=== PATIENT | female | born 1970 | race Caucasian/White ===

== ENCOUNTER 2017-06-11 20:32 | Emergency (ER) | payer MEDICARE, OTHER ==
[2017-06-11] MEDS ORDERED: Sodium Chloride 0.9% 1,000 ML IV STA (21:12)
[2017-06-11 21:40] LABS: BASO % 0.3 % (0.0-2.0); EOS % 0.1 % (0.0-4.0); HEMATOCRIT 38.3 % (34.0-47.0); LYMPH # 0.7 K/uL (1.0-4.3); LYMPH % 8.9 % (20.0-40.0); MEAN CELL VOLUME 86.9 fl (81.0-99.0); MEAN CORPUSCULAR HEMOGLOBIN 28.7 pg (27.0-31.0); MEAN PLATELET VOLUME 8.1 fl (7.2-11.7); MONO # 0.9 K/uL (0.0-0.8); MONO % 11.7 % (0.0-10.0); NEUT # 5.9 K/uL (1.8-7.0); NRBC % 0.1 % (0.0-0.0); PLATELET COUNT 257 K/uL (130-400); RED CELL DISTRIBUTION WIDTH 16.3 % (11.5-14.5); WHITE BLOOD COUNT 7.4 K/uL (4.8-10.8)
[2017-06-11 21:41] LABS: VENOUS BLOOD GAS BASE EXCESS -10.4 mmol/L (0.0-2.0); VENOUS BLOOD GAS PCO2 72 mmHg (40-60); VENOUS BLOOD PH 7.07 (7.32-7.43)
[2017-06-11 21:55] LABS: PARTIAL THROMBOPLASTIN TIME 33.4 Seconds (25.6-37.1)
[2017-06-11 21:57] LABS: URINE BACTERIA FEW (<OCC); URINE BILIRUBIN NEGATIVE (NEGATIVE); URINE BLOOD SMALL (NEGATIVE); URINE COLOR YELLOW (YELLOW); URINE GLUCOSE (UA) NEG (Normal); URINE KETONE 20 mg/dL (NEGATIVE); URINE LEUKOCYTE ESTERASE LARGE Leu/uL (Negative); URINE PROTEIN NEGATIVE (NEGATIVE); URINE UROBILINOGEN 0.2-1.0 mg/dL (0.2-1.0); WBC CLUMPS RARE /hpf; WBC URINE 77 /hpf (0-5)
[2017-06-11 22:01] LABS: RBC URINE 15 /hpf (0-3)
[2017-06-11] MEDS ORDERED: Ciprofloxacin 400mg/200ml D5W 400 MG/200 ML BAG IVPB STA (22:06)
[2017-06-11 22:25] LABS: ALB/GLOB RATIO 1.4 (1.0-2.1); ALKALINE PHOSPHATASE 89 U/L (38-126); ALT/SGPT 27 U/L (9-52); AST/SGOT 25 U/L (14-36); BILIRUBIN,TOTAL 0.9 mg/dl (0.2-1.3); BLOOD UREA NITROGEN 5 mg/dl (7-17); CALCIUM 9.1 mg/dL (8.4-10.2); CARBON DIOXIDE 22 mmol/L (22-30); CHLORIDE 99 mmol/L (98-107); GFR AFRICAN-AMERICAN > 60; GLUCOSE,RANDOM 115 mg/dL (65-105); SODIUM 133 mmol/l (132-148); TOTAL PROTEIN 7.7 G/DL (6.3-8.2)
[2017-06-11 22:48] LABS: NEUTROPHIL 78 % (42-75); TOTAL CELLS COUNTED 100
--- NOTE | 2017-06-11 23:21 | ED PDOC ---
HPI: Female Pain <Yakov Cedillo E - Last Filed: 06/13/17 11:42> Chief Complaint (Provider): UTI related symptoms History Per: Patient History/Exam Limitations: no limitations Onset/Duration Of Symptoms: Days (x4) Current Symptoms Are (Timing): Still Present Associated Symptoms: Fever. denies: Vomiting Additional Complaint(s): 46 year old female presents to ED with complaints of UTI symptoms x4 days and has a past medical history of multiple sclerosis. (+) foul smelling urine, incontinence (baseline secondary to multiple sclerosis), and generalized weakness. Patient notes that she "slid off the bed" secondary to weakness, prompting her to call EMS to be brought to the ED. EMS notes patient was febrile. (-) vomiting, diarrhea, abdominal pain, or dysuria. PCP: Non [facility] Abnormal Vaginal Bleeding: No <Chaparrita Stokes Y - Last Filed: 06/17/17 05:28> Time Seen by Provider: 06/11/17 20:35 Chief Complaint (Nursing): Weakness/Neurological Deficit Past Medical History Vital Signs: Last Vital Signs Temp 99.2 F 06/12/17 00:49 Pulse 84 06/12/17 00:49 Resp 06/12/17 00:49 BP 120/71 06/12/17 00:49 Pulse Ox 99 06/12/17 00:49 <Yakov Cedillo E - Last Filed: 06/13/17 11:42> Reviewed: Historical Data, Nursing Documentation, Vital Signs Vital Signs: Last Vital Signs Temp 99.8 F H 06/11/17 23:02 Pulse 88 06/11/17 23:02 Resp 06/11/17 23:02 BP 123/74 06/11/17 21:05 Pulse Ox 98 06/11/17 23:02 - Medical History PMH: Mitral Valve Prolapse, Multiple Sclerosis Denies: No Chronic Diseases - Surgical History Other surgeries: Thyroidectomy - Family History Family History: States: No Known Family Hx - Social History Current smoker - smoking cessation education provided: No Ex-Smoker (has not smoked in the last 12 months): No Alcohol: None Drugs: Denies <Chaparrita Stokes Y - Last Filed: 06/17/17 05:28> - Home Medications Home Medications: Ambulatory Orders Medication Instructions Recorded Baclofen [Lioresal] 2 tab PO QID 06/13/17 Levothyroxine [Synthroid] 100 mcg PO DAILY 06/13/17 - Allergies Allergies/Adverse Reactions: Allergies Allergy/AdvReac Type Severity Reaction Status Date / Time Penicillins Allergy RASH Verified 10/07/15 19:41 Review of Systems ROS Statement: Except As Marked, All Systems Reviewed And Found Negative Constitutional: Positive for: Fever, Weakness (generalized) Gastrointestinal: Negative for: Vomiting, Abdominal Pain, Diarrhea Genitourinary Female: Positive for: Incontinence (Baseline), Other ((+) foul smelling urine). Negative for: Dysuria <Chaparrita Stokes Y - Last Filed: 06/17/17 05:28> Physical Exam - Reviewed Nursing Documentation Reviewed: Yes Vital Signs Reviewed: Yes - Physical Exam Appears: Positive for: Non-toxic, No Acute Distress Head Exam: Positive for: ATRAUMATIC, NORMOCEPHALIC Skin: Positive for: Normal Color, Warm, Dry. Negative for: Pallor ENT: Negative for: Normal ENT Inspection (dry mucous membranes) Cardiovascular/Chest: Positive for: Regular Rate, Rhythm. Negative for: Murmur Respiratory: Positive for: Normal Breath Sounds. Negative for: Respiratory Distress Gastrointestinal/Abdominal: Positive for: Normal Exam, Soft. Negative for: Tenderness Back: Positive for: Normal Inspection Extremity: Positive for: Other (Contracted secondary to multiple sclerosis) Neurologic/Psych: Positive for: Alert, Oriented <Chaparrita Stokes Y - Last Filed: 06/17/17 05:28> - Laboratory Results Result Diagrams: 06/11/17 21:31 06/11/17 22:10 <Yakov Cedillo E - Last Filed: 06/13/17 11:42> - Laboratory Results Result Diagrams: 06/11/17 21:31 06/11/17 22:10 - ECG O2 Sat by Pulse Oximetry: 98 (RA) Pulse Ox Interpretation: Normal <Chaparrita Stokes Y - Last Filed: 06/17/17 05:28> Medical Decision Making Medical Decision Makin Initial impression: UTI r/o sepsis Initial plan: * VBG * EKG * Labs * Magnesium * Phosphorus * PTT/PT * CXR * NS IV * Acetaminophen 975mg PO * BCx * UA * Re-eval 2206 * Cipro 400mg/200mL DSW Patient is not code sepsis due to WBC count and lactic acid being within normal limits. 2351 Patient feels better, is more energetic and has moister mucous membranes. To be discharged. Will be picked up by brother. Awaiting VBG. Rx for Cipro given for UTI. Patient stable for discharge. Scribe Attestation: Documented by Marley Segovia and Sebastian Monzon acting as a scribe for Chaparrita Stokes MD. MD Scribe Attestation: All medical record entries made by the Scribe were at my direction and personally dictated by me. I have reviewed the chart and agree that the record accurately reflects my personal performance of the history, physical exam, medical decision making, and the department course for this patient. I have also personally directed, reviewed, and agree with the discharge instructions and disposition. <Chaparrita Stokes Y - Last Filed: 06/17/17 05:28> Disposition <Yakov Cedillo - Last Filed: 06/13/17 11:42> - Patient ED Disposition Is Patient to be Admitted: No Counseled Patient/Family Regarding: Studies Performed, Diagnosis, Need For Followup - Disposition Disposition: Routine/Home Disposition Time: 21:00 <Chaparrita Stokes - Last Filed: 06/17/17 05:28> - Clinical Impression Clinical Impression: UTI (urinary tract infection) - Disposition Condition: IMPROVED Additional Instructions: follow up with your primary doctor tomorrow return to the ED with any worsening or concerning symptoms Instructions: Urinary Tract Infection in Women (ED) Forms: [employer] (Kiswahili) Addendum Addendum: 06/13/17 11:43 Blood culture + gram negative victor hugo. Spoke with patient and informed of results. States she is feeling much better. Instructed to return to ED for further testing. Pt. states she will return to this ED today. <Yakov Cedillo E - Last Filed: 06/13/17 11:42>
[2017-06-12 00:17] LABS: VENOUS BLOOD GAS BASE EXCESS -6.8 mmol/L (0.0-2.0); VENOUS BLOOD GAS PCO2 52 mmHg (40-60); VENOUS BLOOD PH 7.22 (7.32-7.43)
[2017-06-12 00:30] LABS: ABG ALLEN TEST YES; ARTERIAL BLOOD GAS HCO3 25.2 mmol/L (21-28); ARTERIAL BLOOD GAS PH 7.47 (7.35-7.45); ARTERIAL BLOOD GAS PO2 97 mm/Hg (80-100)
[2017-06-12 00:51] VITALS: BP 120/71; PULSE 84; RESP 16; TEMP 99.2
--- NOTE | 2017-06-12 09:58 | RAD ---
HISTORY: Sepsis Patient COMPARISON: Comparison chest 10/09/2015. FINDINGS: LUNGS: No active pulmonary disease. PLEURA: No significant pleural effusion identified, no pneumothorax apparent. CARDIOVASCULAR: Normal. OSSEOUS STRUCTURES: Re- demonstrated are old healed left posterior rib fractures VISUALIZED UPPER ABDOMEN: Normal. OTHER FINDINGS: None. IMPRESSION: No acute cardiopulmonary disease. Old healed left posterior rib fractures.
--- NOTE | 2017-06-12 12:15 | CARD ---
APPROVED REPORT EKG Measurement Heart [id number] <Conclusion> Normal sinus rhythm Rightward axis Nonspecific T wave abnormality Abnormal ECG
[2017-06-17 05:28] VITALS: O2SAT 98
== END 2017-06-12 00:45 | disposition home or self-care (01) ==
LOC: H.ER 20:32
DX: N39.0 Urinary tract infection, site not specified (principal)
CPT/HCPCS: 36600; 71010; 80053; 81003; 81025; 82803; 85025; 85610; 85730; 87040; 87086; 87181; 87205; 93005; 96361; 96365; 99285; J0744; J7040

== ENCOUNTER 2017-06-13 18:58 | Inpatient (IN) | payer MEDICARE, OTHER ==
--- NOTE | 2017-06-13 20:20 | ED PDOC ---
HPI: General Adult Time Seen by Provider: 06/13/17 19:31 Chief Complaint (Nursing): Abnormal Labs Chief Complaint (Provider): Abnormal labs History Per: Patient History/Exam Limitations: no limitations Onset/Duration Of Symptoms: Days (x4) Additional Complaint(s): Margarita Sam is a 46 year old female, with a medical history of multiple sclerosis and UTIs, who presents to the emergency department due to positive blood culture after being diagnosed with UTI 2 days ago and given ciprol. Patient was seen in the ED after having fevers, and dysuria for 4 days. Patient is currently feeling better with less dysuria and denies any fever. Patient is taking ciprol every day and is in wheelchair due to MS. PMD: None provided. Past Medical History Reviewed: Historical Data, Nursing Documentation, Vital Signs Vital Signs: Last Vital Signs Temp 99.9 F H 06/13/17 19:16 Pulse 91 H 06/13/17 19:16 Resp 18 06/13/17 19:16 BP 101/71 06/13/17 19:16 Pulse Ox 99 06/13/17 20:28 - Medical History PMH: Mitral Valve Prolapse, Multiple Sclerosis - Family History Family History: States: Unknown Family Hx - Home Medications Home Medications: Ambulatory Orders Medication Instructions Recorded Baclofen [Lioresal] 2 tab PO QID 06/13/17 Levothyroxine [Synthroid] 100 mcg PO DAILY 06/13/17 - Allergies Allergies/Adverse Reactions: Allergies Allergy/AdvReac Type Severity Reaction Status Date / Time Penicillins Allergy RASH Verified 10/07/15 19:41 Review of Systems Constitutional: Negative for: Fever Genitourinary Female: Positive for: Dysuria (less ) Physical Exam - Reviewed Nursing Documentation Reviewed: Yes Vital Signs Reviewed: Yes - Physical Exam Appears: Positive for: Well, Non-toxic, No Acute Distress Head Exam: Positive for: ATRAUMATIC, NORMAL INSPECTION, NORMOCEPHALIC Skin: Positive for: Normal Color, Warm, Dry Eye Exam: Positive for: EOMI, Normal appearance, PERRL ENT: Positive for: Normal ENT Inspection Neck: Positive for: Normal, Painless ROM, Supple Cardiovascular/Chest: Positive for: Regular Rate, Rhythm. Negative for: Murmur Respiratory: Positive for: Normal Breath Sounds. Negative for: Respiratory Distress Gastrointestinal/Abdominal: Positive for: Normal Exam, Bowel Sounds, Soft. Negative for: Tenderness Back: Positive for: Normal Inspection Extremity: Negative for: Normal ROM (limited ROM due to Multiple sclerosis), Pedal Edema, Deformity Neurologic/Psych: Positive for: Alert, Oriented. Negative for: Motor/Sensory Deficits - Laboratory Results Result Diagrams: 06/13/17 20:20 06/13/17 20:26 - ECG O2 Sat by Pulse Oximetry: 99 (RA) Pulse Ox Interpretation: Normal Medical Decision Making Medical Decision Making: Initial Impression: UTI, pyelonephritis, septicimia(sepsis) Initial Plan: --VBG Shock Panel --Masic Metabolic Panel --CBC w/ differential --Rocephin 1gm IV --Blood culture --Urine C&S --reevaluation Scribe Attestation: Documented by Abdullahi Hemphill, acting as a scribe for Uyen Perez MD Provider Scribe Attestation: All medical record entries made by the Scribe were at my direction and personally dictated by me. I have reviewed the chart and agree that the record accurately reflects my personal performance of the history, physical exam, medical decision making, and the department course for this patient. I have also personally directed, reviewed, and agree with the discharge instructions and disposition. Disposition - Clinical Impression Clinical Impression: UTI (urinary tract infection), Septicemia - Patient ED Disposition Is Patient to be Admitted: Yes Discussed With : Samuel Malone Doctor Will See Patient In The: Hospital Counseled Patient/Family Regarding: Studies Performed, Diagnosis - Disposition Disposition Time: 21:40 Condition: FAIR Forms: [employer] (Macedonian) - Pt Status Changed To: Hospital Disposition Of: Observation - POA Present On Arrival: None
[2017-06-13] MEDS ORDERED: cefTRIAXone (Rocephin) 1 gm Inj ONE (20:27)
[2017-06-13 20:31] LABS: BASO % 0.5 % (0.0-2.0); HEMATOCRIT 38.7 % (34.0-47.0); LYMPH # 1.3 K/uL (1.0-4.3); LYMPH % 25.6 % (20.0-40.0); MEAN CELL VOLUME 87.2 fl (81.0-99.0); MEAN CORPUSCULAR HEMOGLOBIN 28.4 pg (27.0-31.0); MEAN CORPUSCULAR HGB CONC 32.6 g/dL (33.0-37.0); MEAN PLATELET VOLUME 7.5 fl (7.2-11.7); MONO # 0.8 K/uL (0.0-0.8); MONO % 15.7 % (0.0-10.0); NEUT # 2.8 K/uL (1.8-7.0); NEUT % 57.2 % (50.0-75.0); RED CELL DISTRIBUTION WIDTH 15.6 % (11.5-14.5); WHITE BLOOD COUNT 4.9 K/uL (4.8-10.8)
[2017-06-13 20:35] LABS: VENOUS BLOOD GAS BASE EXCESS 1.3 mmol/L (0.0-2.0); VENOUS BLOOD GAS PCO2 47 mmHg (40-60); VENOUS BLOOD PH 7.37 (7.32-7.43)
[2017-06-13 20:49] LABS: BLOOD UREA NITROGEN 5 mg/dl (7-17); CALCIUM 9.1 mg/dL (8.4-10.2); CARBON DIOXIDE 23 mmol/L (22-30); CHLORIDE 103 mmol/L (98-107); GFR AFRICAN-AMERICAN > 60; GLUCOSE,RANDOM 90 mg/dL (65-105); POTASSIUM 4.5 MMOL/L (3.6-5.0); SODIUM 136 mmol/l (132-148)
[2017-06-14 06:51] LABS: BASO % 0.7 % (0.0-2.0); EOS # 0.1 K/uL (0.0-0.7); EOS % 1.5 % (0.0-4.0); HEMATOCRIT 37.1 % (34.0-47.0); LYMPH # 1.3 K/uL (1.0-4.3); MEAN CELL VOLUME 87.2 fl (81.0-99.0); MEAN CORPUSCULAR HEMOGLOBIN 28.7 pg (27.0-31.0); MEAN CORPUSCULAR HGB CONC 32.9 g/dL (33.0-37.0); MEAN PLATELET VOLUME 7.8 fl (7.2-11.7); MONO # 0.8 K/uL (0.0-0.8); MONO % 18.3 % (0.0-10.0); NEUT % 48.5 % (50.0-75.0); NRBC % 0.4 % (0.0-0.0); RED CELL DISTRIBUTION WIDTH 15.7 % (11.5-14.5); WHITE BLOOD COUNT 4.1 K/uL (4.8-10.8)
[2017-06-14 07:08] LABS: ALB/GLOB RATIO 1.3 (1.0-2.1); ALKALINE PHOSPHATASE 75 U/L (38-126); ALT/SGPT 29 U/L (9-52); AST/SGOT 24 U/L (14-36); BILIRUBIN,TOTAL 0.4 mg/dl (0.2-1.3); BLOOD UREA NITROGEN 4 mg/dl (7-17); CALCIUM 9.3 mg/dL (8.4-10.2); CARBON DIOXIDE 25 mmol/L (22-30); CHLORIDE 106 mmol/L (98-107); GFR AFRICAN-AMERICAN > 60; GLUCOSE,RANDOM 89 mg/dL (65-105); POTASSIUM 4.1 MMOL/L (3.6-5.0); SODIUM 144 mmol/l (132-148); TOTAL PROTEIN 7.4 G/DL (6.3-8.2)
[2017-06-14] MEDS ORDERED: Levothyroxine 100 MCG TAB PO SCH (07:30)
--- NOTE | 2017-06-14 09:28 | CP.PCM.HP ---
History of Present Illness - History of Present Illness History of Present Illness: pt admitted for + urine and blood cultures. was initially seen in er for dysuria nad fever and dx w/ uti. kit figueroa. was called back bc of pos results. at [facility] denies complaints. no f/c, n/v/d. no abd pain, dysuria. this ma urine c/s resulted as e coli sensitve to cipro, bc gram neg rods pending final c/s. pending is consult pt offers no complaints. Present on Admission - Present on Admission Any Indicators Present on Admission: No Review of Systems - Genitourinary Genitourinary: As Per HPI, Dysuria Past Patient History - Past Medical History & Family History Past Medical History?: Yes - Past Social History Smoking Status: Never Smoked - CARDIAC Hx Cardiac Disorders: Yes (mitral valve prolapse) Hx Mitral Valve Prolapse: Yes - PULMONARY Hx Respiratory Disorders: No - NEUROLOGICAL Hx Neurological Disorder: Yes (MS) - HEENT Hx HEENT Problems: No - RENAL Hx Chronic Kidney Disease: No - ENDOCRINE/METABOLIC Hx Endocrine Disorders: No - HEMATOLOGICAL/ONCOLOGICAL Hx Blood Disorders: No - INTEGUMENTARY Hx Dermatological Problems: No - MUSCULOSKELETAL/RHEUMATOLOGICAL Hx Musculoskeletal Disorders: Yes Hx Falls: Yes - GASTROINTESTINAL Hx Gastrointestinal Disorders: No - GENITOURINARY/GYNECOLOGICAL Hx Genitourinary Disorders: No - PSYCHIATRIC Hx Psychophysiologic Disorder: No Hx Substance Use: No - SURGICAL HISTORY Hx Surgeries: Yes Hx Thyroidectomy: Yes - ANESTHESIA Hx Anesthesia: Yes Hx Anesthesia Reactions: No Meds Allergies/Adverse Reactions: Allergies Allergy/AdvReac Type Severity Reaction Status Date / Time Penicillins Allergy RASH Verified 10/07/15 19:41 Physical Exam - Constitutional Appears: Well, Non-toxic, No Acute Distress - Head Exam Head Exam: ATRAUMATIC, NORMAL INSPECTION, NORMOCEPHALIC - Eye Exam Eye Exam: EOMI, Normal appearance, PERRL Pupil Exam: NORMAL ACCOMODATION, PERRL - ENT Exam ENT Exam: Mucous Membranes Moist, Normal Exam - Neck Exam Neck exam: Positive for: Normal Inspection - Respiratory Exam Respiratory Exam: Clear to Auscultation Bilateral, NORMAL BREATHING PATTERN - Cardiovascular Exam Cardiovascular Exam: REGULAR RHYTHM, RRR, +S1, +S2 - GI/Abdominal Exam GI & Abdominal Exam: Normal Bowel Sounds, Soft. absent: Tenderness - Exam Speculum exam: NORMAL SPECULUM EXAM - Extremities Exam Extremities exam: Positive for: full ROM, normal capillary refill, normal inspection, pedal pulses present - Back Exam Back exam: FULL ROM, NORMAL INSPECTION - Neurological Exam Neurological exam: Alert, CN II-XII Intact, Normal Gait, Oriented x3, Reflexes Normal - Psychiatric Exam Psychiatric exam: Normal Affect, Normal Mood - Skin Skin Exam: Dry, Intact, Normal Color, Warm Results - Vital Signs Recent Vital Signs: Last Vital Signs Temp 97.9 F 06/14/17 07:53 Pulse 91 H 06/14/17 07:53 Resp 18 06/14/17 07:53 BP 93/67 L 06/14/17 07:53 Pulse Ox 100 06/14/17 07:53 - Labs Result Diagrams: 06/14/17 06:10 06/14/17 06:10 Labs: Laboratory Results - last 24 hr 06/13/17 06/13/17 06/13/17 20:20 20:26 20:30 WBC 4.9 RBC 4.43 Hgb 12.6 Hct 38.7 MCV 87.2 MCH 28.4 MCHC 32.6 L RDW 15.6 H Plt Count 256 MPV 7.5 Neut % (Auto) 57.2 Lymph % (Auto) 25.6 Dillon % (Auto) 15.7 H Eos % (Auto) 1.0 Baso % (Auto) 0.5 Neut # 2.8 Lymph # 1.3 Dillon # 0.8 Eos # 0.0 Baso # 0.0 pO2 15 L VBG pH 7.37 VBG pCO2 47 VBG HCO3 23.8 VBG Total CO2 28.6 H VBG O2 Sat (Calc) 22.6 L VBG Base Excess 1.3 VBG Potassium 4.4 Glucose 92 Lactate 1.0 FiO2 21.0 Sodium 136 135.0 Potassium 4.5 Chloride 103 102.0 Carbon Dioxide 23 Anion Gap 15 BUN 5 L Creatinine 0.5 L Est GFR ( Amer) > 60 Est GFR (Non-Af Amer) > 60 Random Glucose 90 Calcium 9.1 Total Bilirubin AST ALT Alkaline Phosphatase Total Protein Albumin Globulin Albumin/Globulin Ratio Venous Blood Potassium 4.4 06/14/17 06/14/17 06:10 06:10 WBC 4.1 L RBC 4.25 Hgb 12.2 Hct 37.1 MCV 87.2 MCH 28.7 MCHC 32.9 L RDW 15.7 H Plt Count 245 MPV 7.8 Neut % (Auto) 48.5 L Lymph % (Auto) 31.0 Dillon % (Auto) 18.3 H Eos % (Auto) 1.5 Baso % (Auto) 0.7 Neut # 2.0 Lymph # 1.3 Dillon # 0.8 Eos # 0.1 Baso # 0.0 pO2 VBG pH VBG pCO2 VBG HCO3 VBG Total CO2 VBG O2 Sat (Calc) VBG Base Excess VBG Potassium Glucose Lactate FiO2 Sodium 144 Potassium 4.1 Chloride 106 Carbon Dioxide 25 Anion Gap 17 BUN 4 L Creatinine 0.5 L Est GFR ( Amer) > 60 Est GFR (Non-Af Amer) > 60 Random Glucose 89 Calcium 9.3 Total Bilirubin 0.4 AST 24 ALT 29 Alkaline Phosphatase 75 Total Protein 7.4 Albumin 4.2 Globulin 3.2 Albumin/Globulin Ratio 1.3 Venous Blood Potassium Assessment & Plan (1) DVT prophylaxis Assessment and Plan: scd and aehose ambulation lovenox if admitted over 24h Status: Acute (2) Septicemia Assessment and Plan: pendign final blood culture ID consult ?? ability to dc on po cipro x 10 days. Status: Acute (3) UTI (urinary tract infection) Assessment and Plan: rocpehin while in pt. sensitive to cipro ?? able to resume cipro for longer course Status: Acute (4) Multiple sclerosis Assessment and Plan: cont tx plan as est by pmd Status: Acute Decision To Admit - Pt Status Changed To: Hospital Disposition Of: Observation - . Bed Request Type: Med/Surg Admitting Physician: Herson Butler
--- NOTE | 2017-06-14 10:52 | CP.PCM.CON ---
History of Present Illness - History of Present Illness History of Present Illness: Infectious Diseae Consult Note- asked to see this patient at the request of Samuel Malone for UTI and positve blood cx. HPI- Patient is a 46 year old female with PMH of Multiple Sclerosis wheelchair bound who originally came to ED 3 days ago with c/o dysurea and fever and wsa diagnosed with UTI and was d/c on oral cipro, howver, pt. was called back today because her Blood cx from 06/11/2017 was reported as GNR and urine cx from the same day as e.coli. Pt. currently denies any fever ro chills and sattes her dysurea and urinary spams sensation has resolved since taking the oral cipro. She states she is prone to frequent UTI's as outpatient and does have an ID doctor that she sees as Outpatient but states the last time she had UTI was a year ago and nothing recent. She states she gets Hives with PCN but does not think she ever had any issues with cephalosporins. Review of Systems - Review of Systems Review of Systems: ROS- had dysurea and urine spasm like sensation 4 days ago and has resolved with oral cipro, had fever but denies an it now, denies any abd or pelvic pain, denies any back pain, denies any LOMAX, denies any cough, denies any sob, denies any chest pain, denies any n/v, denies any diarrhea denies any sick contacts denies any recent travel Past Patient History - Past Medical History & Family History Past Medical History?: Yes - Past Social History Smoking Status: Never Smoked Alcohol: None Drugs: Denies Home Situation {Lives}: Alone - CARDIAC Hx Cardiac Disorders: Yes (mitral valve prolapse) Hx Mitral Valve Prolapse: Yes - PULMONARY Hx Respiratory Disorders: No - NEUROLOGICAL Hx Neurological Disorder: Yes (MS) - HEENT Hx HEENT Problems: No - RENAL Hx Chronic Kidney Disease: No - ENDOCRINE/METABOLIC Hx Endocrine Disorders: No - HEMATOLOGICAL/ONCOLOGICAL Hx Blood Disorders: No - INTEGUMENTARY Hx Dermatological Problems: No - MUSCULOSKELETAL/RHEUMATOLOGICAL Hx Musculoskeletal Disorders: Yes Hx Falls: Yes - GASTROINTESTINAL Hx Gastrointestinal Disorders: No - GENITOURINARY/GYNECOLOGICAL Hx Genitourinary Disorders: No - PSYCHIATRIC Hx Psychophysiologic Disorder: No Hx Substance Use: No - SURGICAL HISTORY Hx Surgeries: Yes Hx Thyroidectomy: Yes - ANESTHESIA Hx Anesthesia: Yes Hx Anesthesia Reactions: No Meds Allergies/Adverse Reactions: Allergies Allergy/AdvReac Type Severity Reaction Status Date / Time Penicillins Allergy RASH Verified 10/07/15 19:41 - Medications Medications: Current Medications Baclofen (Lioresal) 40 mg PO QID PRN PRN Reason: Muscle spasm Levothyroxine Sodium (Synthroid) 100 mcg PO ACB JACQUELYN Last Admin: 06/14/17 08:55 Dose: Not Given Physical Exam - Constitutional Appears: No Acute Distress - Head Exam Head Exam: ATRAUMATIC - Eye Exam Eye Exam: EOMI, PERRL - ENT Exam ENT Exam: Normal Oropharynx - Neck Exam Neck exam: Positive for: Full Rom - Respiratory Exam Respiratory Exam: Clear to Auscultation Bilateral, NORMAL BREATHING PATTERN - Cardiovascular Exam Cardiovascular Exam: RRR, +S1, +S2 - GI/Abdominal Exam GI & Abdominal Exam: Normal Bowel Sounds, Soft Additional comments: NT, ND No CVA tenderness b/l - Extremities Exam Additional comments: no edema b/l LE - Neurological Exam Neurological exam: Alert, Oriented x3 Results - Vital Signs Recent Vital Signs: Last Vital Signs Temp 97.9 F 06/14/17 07:53 Pulse 91 H 06/14/17 07:53 Resp 18 06/14/17 07:53 BP 93/67 L 06/14/17 07:53 Pulse Ox 100 06/14/17 07:53 - Labs Result Diagrams: 06/14/17 06:10 06/14/17 06:10 Labs: Laboratory Results - last 24 hr 06/13/17 06/13/17 06/13/17 20:20 20:26 20:30 WBC 4.9 RBC 4.43 Hgb 12.6 Hct 38.7 MCV 87.2 MCH 28.4 MCHC 32.6 L RDW 15.6 H Plt Count 256 MPV 7.5 Neut % (Auto) 57.2 Lymph % (Auto) 25.6 Hood % (Auto) 15.7 H Eos % (Auto) 1.0 Baso % (Auto) 0.5 Neut # 2.8 Lymph # 1.3 Hood # 0.8 Eos # 0.0 Baso # 0.0 pO2 15 L VBG pH 7.37 VBG pCO2 47 VBG HCO3 23.8 VBG Total CO2 28.6 H VBG O2 Sat (Calc) 22.6 L VBG Base Excess 1.3 VBG Potassium 4.4 Glucose 92 Lactate 1.0 FiO2 21.0 Sodium 136 135.0 Potassium 4.5 Chloride 103 102.0 Carbon Dioxide 23 Anion Gap 15 BUN 5 L Creatinine 0.5 L Est GFR ( Amer) > 60 Est GFR (Non-Af Amer) > 60 Random Glucose 90 Calcium 9.1 Total Bilirubin AST ALT Alkaline Phosphatase Total Protein Albumin Globulin Albumin/Globulin Ratio Venous Blood Potassium 4.4 06/14/17 06/14/17 06:10 06:10 WBC 4.1 L RBC 4.25 Hgb 12.2 Hct 37.1 MCV 87.2 MCH 28.7 MCHC 32.9 L RDW 15.7 H Plt Count 245 MPV 7.8 Neut % (Auto) 48.5 L Lymph % (Auto) 31.0 Hood % (Auto) 18.3 H Eos % (Auto) 1.5 Baso % (Auto) 0.7 Neut # 2.0 Lymph # 1.3 Hood # 0.8 Eos # 0.1 Baso # 0.0 pO2 VBG pH VBG pCO2 VBG HCO3 VBG Total CO2 VBG O2 Sat (Calc) VBG Base Excess VBG Potassium Glucose Lactate FiO2 Sodium 144 Potassium 4.1 Chloride 106 Carbon Dioxide 25 Anion Gap 17 BUN 4 L Creatinine 0.5 L Est GFR ( Amer) > 60 Est GFR (Non-Af Amer) > 60 Random Glucose 89 Calcium 9.3 Total Bilirubin 0.4 AST 24 ALT 29 Alkaline Phosphatase 75 Total Protein 7.4 Albumin 4.2 Globulin 3.2 Albumin/Globulin Ratio 1.3 Venous Blood Potassium Laboratory Results - last 72 hr 06/13/17 06/13/17 06/13/17 20:20 20:26 20:30 WBC 4.9 RBC 4.43 Hgb 12.6 Hct 38.7 MCV 87.2 MCH 28.4 MCHC 32.6 L RDW 15.6 H Plt Count 256 MPV 7.5 Neut % (Auto) 57.2 Lymph % (Auto) 25.6 Hood % (Auto) 15.7 H Eos % (Auto) 1.0 Baso % (Auto) 0.5 Neut # 2.8 Lymph # 1.3 Hood # 0.8 Eos # 0.0 Baso # 0.0 pO2 15 L VBG pH 7.37 VBG pCO2 47 VBG HCO3 23.8 VBG Total CO2 28.6 H VBG O2 Sat (Calc) 22.6 L VBG Base Excess 1.3 VBG Potassium 4.4 Glucose 92 Lactate 1.0 FiO2 21.0 Sodium 136 135.0 Potassium 4.5 Chloride 103 102.0 Carbon Dioxide 23 Anion Gap 15 BUN 5 L Creatinine 0.5 L Est GFR ( Amer) > 60 Est GFR (Non-Af Amer) > 60 Random Glucose 90 Calcium 9.1 Total Bilirubin AST ALT Alkaline Phosphatase Total Protein Albumin Globulin Albumin/Globulin Ratio Venous Blood Potassium 4.4 06/14/17 06/14/17 06:10 06:10 WBC 4.1 L RBC 4.25 Hgb 12.2 Hct 37.1 MCV 87.2 MCH 28.7 MCHC 32.9 L RDW 15.7 H Plt Count 245 MPV 7.8 Neut % (Auto) 48.5 L Lymph % (Auto) 31.0 Hood % (Auto) 18.3 H Eos % (Auto) 1.5 Baso % (Auto) 0.7 Neut # 2.0 Lymph # 1.3 Hood # 0.8 Eos # 0.1 Baso # 0.0 pO2 VBG pH VBG pCO2 VBG HCO3 VBG Total CO2 VBG O2 Sat (Calc) VBG Base Excess VBG Potassium Glucose Lactate FiO2 Sodium 144 Potassium 4.1 Chloride 106 Carbon Dioxide 25 Anion Gap 17 BUN 4 L Creatinine 0.5 L Est GFR ( Amer) > 60 Est GFR (Non-Af Amer) > 60 Random Glucose 89 Calcium 9.3 Total Bilirubin 0.4 AST 24 ALT 29 Alkaline Phosphatase 75 Total Protein 7.4 Albumin 4.2 Globulin 3.2 Albumin/Globulin Ratio 1.3 Venous Blood Potassium Microbiology 06/11/17 21:41 Urine,Catheterized Urine Culture - Final Escherichia Coli 06/11/17 21:20 Blood Gram Stain - Final 06/11/17 21:35 Blood Blood Culture - Preliminary 06/11/17 21:35 Blood NO GROWTH AFTER 48 HOURS 06/11/17 21:20 Blood Blood Culture - Preliminary 06/11/17 21:20 Blood Gram Negative Benjamin Assessment & Plan (1) Septicemia Status: Acute (2) UTI (urinary tract infection) Status: Acute (3) Multiple sclerosis Status: Acute - Assessment and Plan (Free Text) Assessment: A/P- 46 year old female with MS admitted with E.coli UTI and GNR bacteremia. pt. had low garde fever on admission but is afebrile today. no leukocytosis. Urine cx- E.Coli pansensitive Blood cx from 06/11/2017- GNR 1 out of 2 bottles Plan- pt. symptomatically much improved on the oral cipro, however, in light of GNR bacteremia ( eventhough only 1 out of 2 cx bottles was positive) would advise to treat with IV cipro pending ID and sensitivity of the GNR in blood cx. advise 2 weeks of antibiotics. the urine e.coli is sensitive to the cipro as per micro report. check another 2 blood cx. check ECHO r/o any vegetations. all above d/w patient at length and she verbalizes full understanding of all above and agrees with above plan of care. All above also d/w Samuel Malone the admitting provider. Thank you fro allowing me to take part in the care of this patient. will f/u while inpatient.
[2017-06-14] MEDS: Ciprofloxacin 400mg/200ml D5W 400 MG/200 ML BAG IVPB SCH ×2 (17:55→20:53)
[2017-06-14] MEDS: Lactobacillus Acidophilus 500 MU Cap PO SCH (21:22)
[2017-06-14 23:18] LABS: URINE BILIRUBIN NEGATIVE (NEGATIVE); URINE BLOOD NEGATIVE (NEGATIVE); URINE COLOR COLORLESS (YELLOW); URINE GLUCOSE (UA) NEG (Normal); URINE KETONE NEGATIVE (NEGATIVE); URINE LEUKOCYTE ESTERASE TRACE Leu/uL (Negative); URINE PROTEIN NEGATIVE (NEGATIVE); URINE UROBILINOGEN 0.2-1.0 mg/dL (0.2-1.0)
[2017-06-14 23:33] LABS: RBC URINE 3 /hpf (0-3); URINE BACTERIA RARE (<OCC); WBC URINE 11 /hpf (0-5)
[2017-06-15] MEDS: Levothyroxine 88 MCG TAB PO SCH (06:55)
--- NOTE | 2017-06-15 09:28 | CP.PCM.PN ---
Subjective - Date & Time of Evaluation Date of Evaluation: 06/15/17 Time of Evaluation: 09:27 - Subjective Subjective: doing well, no complaints. no f/c, n/v/d labs nad updated c/s noted pt refusing cipro, states that her ID specialist wants rocephin/genta Objective - Vital Signs/Intake and Output Vital Signs (last 24 hours): Temp Pulse Resp BP Pulse Ox 97.9 F 93 H 20 103/68 100 06/15/17 09:00 06/15/17 09:00 06/15/17 09:00 06/15/17 09:00 06/15/17 09:00 - Medications Medications: Current Medications Baclofen (Lioresal) 40 mg PO 0400,1000,1600,2200 [facility] Last Admin: 06/15/17 04:14 Dose: 40 mg Ciprofloxacin (Cipro 400mg/200ml Dsw) 400 mg in 200 mls @ 200 mls/hr IVPB Q12 [facility] Last Admin: 06/14/17 20:53 Dose: Not Given Lactobacillus Acidophilus (Bacid Acidophilus) 2 cap PO BID [facility] Last Admin: 06/14/17 21:22 Dose: 2 cap Levothyroxine Sodium (Synthroid) 88 mcg PO DAILY@0630 [facility] Last Admin: 06/15/17 06:55 Dose: 88 mcg - Labs Labs: 06/14/17 06:10 06/14/17 06:10 - Constitutional Appears: Well, Non-toxic, No Acute Distress - Head Exam Head Exam: ATRAUMATIC, NORMAL INSPECTION, NORMOCEPHALIC - Eye Exam Eye Exam: EOMI, Normal appearance, PERRL Pupil Exam: NORMAL ACCOMODATION, PERRL - ENT Exam ENT Exam: Mucous Membranes Moist, Normal Exam - Neck Exam Neck Exam: Full ROM, Normal Inspection. absent: Lymphadenopathy - Respiratory Exam Respiratory Exam: Clear to Ausculation Bilateral, NORMAL BREATHING PATTERN - Cardiovascular Exam Cardiovascular Exam: REGULAR RHYTHM, RRR, +S1, +S2. absent: Murmur - GI/Abdominal Exam GI & Abdominal Exam: Soft, Normal Bowel Sounds. absent: Tenderness - Extremities Exam Extremities Exam: Full ROM, Normal Capillary Refill, Normal Inspection. absent : Joint Swelling, Pedal Edema - Back Exam Back Exam: NORMAL INSPECTION - Neurological Exam Neurological Exam: Alert, Awake, CN II-XII Intact, Normal Gait, Oriented x3 - Psychiatric Exam Psychiatric exam: Normal Affect, Normal Mood - Skin Skin Exam: Dry, Intact, Normal Color, Warm Assessment and Plan (1) DVT prophylaxis Status: Acute (2) Septicemia Status: Acute (3) UTI (urinary tract infection) Status: Acute (4) Multiple sclerosis Status: Acute - Assessment and Plan (Free Text) Assessment: Assessment & Plan (1) DVT prophylaxis Assessment and Plan: scd and aehose ambulation lovenox if admitted over 24h Status: Acute (2) Septicemia Assessment and Plan: pendign final blood culture ID consult rocephin pending echo report Status: Acute (3) UTI (urinary tract infection) Assessment and Plan: rocpehin while in pt. pt wishes for gent/rocephin as per her id, per [place] id only rocephin, no gent arrangements for infusion center to be made saturday Status: Acute (4) Multiple sclerosis Assessment and Plan: cont tx plan as est by pmd Status: Acute
[2017-06-15] MEDS: Lactobacillus Acidophilus 500 MU Cap PO SCH ×2 (09:57→16:43)
--- NOTE | 2017-06-15 14:22 | CARD ---
APPROVED REPORT EXAM: Two-dimensional and M-mode echocardiogram with Doppler and color Doppler. Other Information Quality : Rhythm : NSR INDICATION LV Function:SystolicDiastolic 2D DIMENSIONS IVSd0.85 (0.7-1.1cm)LVDd4.28 (3.9-5.9cm) LVOT Diameter2.27 (1.8-2.4cm)PWd0.50 (0.7-1.1cm) IVSs1.06 (0.8-1.2cm)LVDs3.58 (2.5-4.0cm) FS (%) 16.3 %PWs0.62 (0.8-1.2cm) M-Mode DIMENSIONS Left Atrium (MM)2.68 (2.5-4.0cm)IVSd0.68 (0.7-1.1cm) Aortic Root2.99 (2.2-3.7cm)LVDd4.58 (4.0-5.6cm) Aortic Cusp Exc.2.37 (1.5-2.0cm)PWd0.72 (0.7-1.1cm) IVSs0.89 cmFS (%) 19 % LVDs3.71 (2.0-3.8cm)PWs1.13 cm Mitral Valve MV E Ggwkxxtt67.7cm/sMV DECEL [id number] A Xgtpfrgq94.8cm/s MV ZZL25jgL/A ratio1.8MVA (PHT)4.26cm2 TDI Lateral E' Peak V10.67cm/sMedial E' Peak V10.59cm/sE/Lateral E'5.2 E/Medial E'5.3 Pulmonary Valve PV Peak Adpiclpm92.5cm/s LEFT VENTRICLE The left ventricle is normal size. There is normal left ventricular wall thickness. The left ventricular function is normal. The left ventricular ejection fraction is within the normal range. The Ejection Fraction is 55-60%. There is normal LV segmental wall motion. The left ventricular diastolic function is normal. No left ventricle thrombus noted on this study. There is no mass noted in the left ventricle. RIGHT VENTRICLE The right ventricle is normal size. There is normal right ventricular wall thickness. The right ventricular systolic function is normal. ATRIA The left atrium size is normal. The right atrium size is normal. The interatrial septum is intact with no evidence for an atrial septal defect. AORTIC VALVE The aortic valve is normal in structure and function. No aortic regurgitation is present. There is no aortic valvular stenosis. There is no aortic valvular vegetation. MITRAL VALVE The mitral valve is normal in structure and function. There is no evidence of mitral valve prolapse. There is no mitral valve stenosis. Mitral regurgitation is mild. TRICUSPID VALVE The tricuspid valve is normal in structure and function. There is no tricuspid valve regurgitation noted. There is no tricuspid valve prolapse or vegetation. There is no tricuspid valve stenosis. PULMONIC VALVE The pulmonary valve is normal in structure and function. There is no pulmonic valvular regurgitation. There is no pulmonic valvular stenosis. GREAT VESSELS The aortic root is normal in size. The IVC is normal in size and collapses >50% with inspiration. PERICARDIAL EFFUSION The pericardium appears normal. There is no pleural effusion. <Conclusion> The left ventricle is normal size. The left ventricular function is normal. The left ventricular ejection fraction is within the normal range. The Ejection Fraction is 55-60%. Mitral regurgitation is mild.
--- NOTE | 2017-06-15 14:31 | CP.PCM.PN ---
Subjective - Date & Time of Evaluation Date of Evaluation: 06/15/17 Time of Evaluation: 12:15 - Subjective Subjective: ID Note- Pt. seen and examined today. Pt. states she feels fine , denies any fever or chills, denies any dysurea., denies any abdominal pain. Pt. states she has discussed her case with her ID doctor that she has as outpatient and she was advised to be on ceftriaxone and Gentamiicin and she does not wish to be on Cipro. pt. also states she was given one dose of ceftriaxone when she was first seen in ED and she tolerated this well without any side effects and wants to be on ceftriaxone . pt. states she has taken cipro with previous UTIs and does not wish to be on this abx at this time. Objective - Vital Signs/Intake and Output Vital Signs (last 24 hours): Temp Pulse Resp BP Pulse Ox 97.9 F 93 H 20 103/68 100 06/15/17 09:00 06/15/17 09:00 06/15/17 09:00 06/15/17 09:00 06/15/17 09:00 - Medications Medications: Current Medications Baclofen (Lioresal) 40 mg PO 0400,1000,1600,2200 [facility] Last Admin: 06/15/17 09:54 Dose: 40 mg Ceftriaxone Sodium 1 gm/ (Sodium Chloride) 100 mls @ 100 mls/hr IVPB DAILY@ 1400 [facility] Last Admin: 06/15/17 13:54 Dose: 100 mls/hr Lactobacillus Acidophilus (Bacid Acidophilus) 2 cap PO BID [facility] Last Admin: 06/15/17 09:57 Dose: 2 cap Levothyroxine Sodium (Synthroid) 88 mcg PO DAILY@0630 [facility] Last Admin: 06/15/17 06:55 Dose: 88 mcg - Labs Labs: - Additional Findings Additional findings: - Constitutional Appears: No Acute Distress - Head Exam Head Exam: ATRAUMATIC - Eye Exam Eye Exam: EOMI, PERRL - ENT Exam ENT Exam: Normal Oropharynx - Neck Exam Neck exam: Positive for: Full Rom - Respiratory Exam Respiratory Exam: Clear to Auscultation Bilateral, NORMAL BREATHING PATTERN - Cardiovascular Exam Cardiovascular Exam: RRR, +S1, +S2 - GI/Abdominal Exam GI & Abdominal Exam: Normal Bowel Sounds, Soft Additional comments: NT, ND No CVA tenderness b/l - Extremities Exam Additional comments: no edema b/l LE - Neurological Exam Neurological exam: Alert, Oriented x 3 Laboratory Results - last 72 hr 06/13/17 06/13/17 06/13/17 20:20 20:26 20:30 WBC 4.9 RBC 4.43 Hgb 12.6 Hct 38.7 MCV 87.2 MCH 28.4 MCHC 32.6 L RDW 15.6 H Plt Count 256 MPV 7.5 Neut % (Auto) 57.2 Lymph % (Auto) 25.6 [place] % (Auto) 15.7 H Eos % (Auto) 1.0 Baso % (Auto) 0.5 Neut # 2.8 Lymph # 1.3 [place] # 0.8 Eos # 0.0 Baso # 0.0 pO2 15 L VBG pH 7.37 VBG pCO2 47 VBG HCO3 23.8 VBG Total CO2 28.6 H VBG O2 Sat (Calc) 22.6 L VBG Base Excess 1.3 VBG Potassium 4.4 Glucose 92 Lactate 1.0 FiO2 21.0 Sodium 136 135.0 Potassium 4.5 Chloride 103 102.0 Carbon Dioxide 23 Anion Gap 15 BUN 5 L Creatinine 0.5 L Est GFR ( Amer) > 60 Est GFR (Non-Af Amer) > 60 Random Glucose 90 Calcium 9.1 Total Bilirubin AST ALT Alkaline Phosphatase Total Protein Albumin Globulin Albumin/Globulin Ratio Venous Blood Potassium 4.4 Urine Color Urine Clarity Urine pH Ur Specific [place] Urine Protein Urine Glucose (UA) Urine Ketones Urine Blood Urine Nitrate Urine Bilirubin Urine Urobilinogen Ur Leukocyte Esterase Urine RBC (Auto) Urine Microscopic WBC Ur Squamous Epith Cells Urine Bacteria 06/14/17 06/14/17 06/14/17 06:10 06:10 23:00 WBC 4.1 L RBC 4.25 Hgb 12.2 Hct 37.1 MCV 87.2 MCH 28.7 MCHC 32.9 L RDW 15.7 H Plt Count 245 MPV 7.8 Neut % (Auto) 48.5 L Lymph % (Auto) 31.0 [place] % (Auto) 18.3 H Eos % (Auto) 1.5 Baso % (Auto) 0.7 Neut # 2.0 Lymph # 1.3 [place] # 0.8 Eos # 0.1 Baso # 0.0 pO2 VBG pH VBG pCO2 VBG HCO3 VBG Total CO2 VBG O2 Sat (Calc) VBG Base Excess VBG Potassium Glucose Lactate FiO2 Sodium 144 Potassium 4.1 Chloride 106 Carbon Dioxide 25 Anion Gap 17 BUN 4 L Creatinine 0.5 L Est GFR ( Amer) > 60 Est GFR (Non-Af Amer) > 60 Random Glucose 89 Calcium 9.3 Total Bilirubin 0.4 AST 24 ALT 29 Alkaline Phosphatase 75 Total Protein 7.4 Albumin 4.2 Globulin 3.2 Albumin/Globulin Ratio 1.3 Venous Blood Potassium Urine Color Colorless Urine Clarity Clear Urine pH 7.0 Ur Specific [place] < 1.005 Urine Protein Negative Urine Glucose (UA) Neg Urine Ketones Negative Urine Blood Negative Urine Nitrate Negative Urine Bilirubin Negative Urine Urobilinogen 0.2-1.0 Ur Leukocyte Esterase Trace Urine RBC (Auto) 3 Urine Microscopic WBC 11 H Ur Squamous Epith Cells 2 Urine Bacteria Rare Microbiology 06/13/17 01:40 Urine Urine Culture - Final No Growth (<1,000 CFU/ML) 06/13/17 20:28 Blood-Venous Blood Culture - Preliminary NO GROWTH AFTER 24 HOURS 06/13/17 20:20 Blood-Venous Blood Culture - Preliminary NO GROWTH AFTER 24 HOURS Microbiology 06/11/17 21:41 Urine,Catheterized Urine Culture - Final Escherichia Coli 06/11/17 21:20 Blood Blood Culture - Final 06/11/17 21:20 Blood Gram Stain - Final Escherichia Coli 06/11/17 21:35 Blood Blood Culture - Preliminary 06/11/17 21:35 Blood NO GROWTH AFTER 3 DAYS Assessment and Plan (1) Septicemia Status: Acute (2) UTI (urinary tract infection) Status: Acute (3) Multiple sclerosis Status: Acute - Assessment and Plan (Free Text) Assessment: A/P- 46 year old female with MS admitted with E.coli UTI and GNR bacteremia. has remained afebrile no leukocytosis. Urine cx- E.Coli pansensitive from 06/11/2017 Blood cx from 06/11/2017- e.coli (pansensitive) 1 out of 2 bottles repeat blood cx from 06/13/2017-neg x 2 repeat urine cx from 06/13/2017- neg TTE- no vegetations as per report read by drawing supervisor. Plan- advised pt. that I have no objection to switching her to ceftriaxone if she has tolerated it in the past since the e.coli is sensitive to this medication and it's once daily and hence easier for the patient. however, advised that there is no indication for the gentamicin and that gent is nephrotoxic and since her e.coli is sensitive to all abx including the ceftriaxone no need for gent at this time also advised pt. at length if she develops any signs of rash or itching or trouble swallowing to immediately notify her nurse and if that happens we would d/c ceftriaxone at that time. Pt. agrees to above plan and verbalizes full understanding of all above. She also state she does not wish to have picc line and wished to come to infusion center daily for her daily ceftriaxone once she is d/c from hospital. all above d/w patient at length and all her questions were answered and she verbalizes full understanding of all above and agrees with above plan of care. All above also d/w Samuel Malone the admitting provider.
[2017-06-16] MEDS: Levothyroxine 88 MCG TAB PO SCH (06:54)
[2017-06-16] MEDS: Lactobacillus Acidophilus 500 MU Cap PO SCH ×2 (09:56→17:04)
--- NOTE | 2017-06-16 10:02 | CP.PCM.PN ---
Subjective - Date & Time of Evaluation Date of Evaluation: 06/16/17 Time of Evaluation: 10:00 - Subjective Subjective: doign well, no compliants. no f/c, n/v/d. Objective - Vital Signs/Intake and Output Vital Signs (last 24 hours): Temp Pulse Resp BP Pulse Ox 98.4 F 65 18 97/63 L 100 06/16/17 08:38 06/16/17 08:38 06/16/17 08:38 06/16/17 08:38 06/16/17 08:38 - Medications Medications: Current Medications Baclofen (Lioresal) 40 mg PO 0400,1000,1600,2200 [facility] Last Admin: 06/16/17 09:56 Dose: 40 mg Ceftriaxone Sodium 1 gm/ (Sodium Chloride) 100 mls @ 100 mls/hr IVPB DAILY@ 1400 [facility] Last Admin: 06/15/17 13:54 Dose: 100 mls/hr Lactobacillus Acidophilus (Bacid Acidophilus) 2 cap PO BID [facility] Last Admin: 06/16/17 09:56 Dose: 2 cap Levothyroxine Sodium (Synthroid) 88 mcg PO DAILY@0630 [facility] Last Admin: 06/16/17 06:54 Dose: 88 mcg - Labs Labs: 06/14/17 06:10 06/14/17 06:10 - Constitutional Appears: Well, Non-toxic, No Acute Distress - Head Exam Head Exam: ATRAUMATIC, NORMAL INSPECTION, NORMOCEPHALIC - Eye Exam Eye Exam: EOMI, Normal appearance, PERRL Pupil Exam: NORMAL ACCOMODATION, PERRL - ENT Exam ENT Exam: Mucous Membranes Moist, Normal Exam - Neck Exam Neck Exam: Full ROM, Normal Inspection. absent: Lymphadenopathy - Respiratory Exam Respiratory Exam: Clear to Ausculation Bilateral, NORMAL BREATHING PATTERN - Cardiovascular Exam Cardiovascular Exam: REGULAR RHYTHM, RRR, +S1, +S2. absent: Murmur - GI/Abdominal Exam GI & Abdominal Exam: Soft, Normal Bowel Sounds. absent: Tenderness - Extremities Exam Extremities Exam: Full ROM, Normal Capillary Refill, Normal Inspection. absent : Joint Swelling, Pedal Edema - Back Exam Back Exam: NORMAL INSPECTION - Neurological Exam Neurological Exam: Alert, Awake, CN II-XII Intact, Normal Gait, Oriented x3 - Psychiatric Exam Psychiatric exam: Normal Affect, Normal Mood - Skin Skin Exam: Dry, Intact, Normal Color, Warm Assessment and Plan (1) DVT prophylaxis Status: Acute (2) Septicemia Status: Acute (3) UTI (urinary tract infection) Status: Acute (4) Multiple sclerosis Status: Acute - Assessment and Plan (Free Text) Assessment: (1) DVT prophylaxis Assessment and Plan: scd and aehose ambulation lovenox if admitted over 24h Status: Acute (2) Septicemia Assessment and Plan: pendign final blood culture ID consult rocephin pending echo report Status: Acute (3) UTI (urinary tract infection) Assessment and Plan: rocpehin while in pt. pt wishes for gent/rocephin as per her id, per [place] id only rocephin, no gent arrangements for infusion center to be made saturday Status: Acute (4) Multiple sclerosis Assessment and Plan: cont tx plan as est by pmd Status: Acute dc tomorrow
[2017-06-17] MEDS: Levothyroxine 88 MCG TAB PO SCH (06:54)
--- NOTE | 2017-06-17 08:14 | CP.PCM.DIS ---
Provider - Provider Date of Admission: 06/15/17 20:17 Attending physician: Herson Butler MD Time Spent in preparation of Discharge (in minutes): 15 Diagnosis - Discharge Diagnosis (1) DVT prophylaxis Status: Acute (2) Septicemia Status: Acute (3) UTI (urinary tract infection) Status: Acute (4) Multiple sclerosis Status: Acute Hospital Course - Lab Results Lab Results: Micro Results 06/13/17 20:28 Blood-Venous Blood Culture - Preliminary NO GROWTH AFTER 3 DAYS 06/13/17 20:20 Blood-Venous Blood Culture - Preliminary NO GROWTH AFTER 3 DAYS 06/14/17 18:45 Blood-Venous Blood Culture - Preliminary NO GROWTH AFTER 48 HOURS 06/14/17 18:30 Blood-Venous Blood Culture - Preliminary NO GROWTH AFTER 48 HOURS 06/13/17 01:40 Urine Urine Culture - Final No Growth (<1,000 CFU/ML) Most Recent Lab Values WBC 4.1 K/uL (4.8-10.8) L 06/14/17 06:10 RBC 4.25 Mil/uL (3.80-5.20) 06/14/17 06:10 Hgb 12.2 g/dL (12.0-16.0) 06/14/17 06:10 Hct 37.1 % (34.0-47.0) 06/14/17 06:10 MCV 87.2 fl (81.0-99.0) 06/14/17 06:10 MCH 28.7 pg (27.0-31.0) 06/14/17 06:10 MCHC 32.9 g/dL (33.0-37.0) L 06/14/17 06:10 RDW 15.7 % (11.5-14.5) H 06/14/17 06:10 Plt Count 245 K/uL (130-400) 06/14/17 06:10 MPV 7.8 fl (7.2-11.7) 06/14/17 06:10 Neut % (Auto) 48.5 % (50.0-75.0) L 06/14/17 06:10 Lymph % (Auto) 31.0 % (20.0-40.0) 06/14/17 06:10 [place] % (Auto) 18.3 % (0.0-10.0) H 06/14/17 06:10 Eos % (Auto) 1.5 % (0.0-4.0) 06/14/17 06:10 Baso % (Auto) 0.7 % (0.0-2.0) 06/14/17 06:10 Neut # 2.0 K/uL (1.8-7.0) 06/14/17 06:10 Lymph # 1.3 K/uL (1.0-4.3) 06/14/17 06:10 [place] # 0.8 K/uL (0.0-0.8) 06/14/17 06:10 Eos # 0.1 K/uL (0.0-0.7) 06/14/17 06:10 Baso # 0.0 K/uL (0.0-0.2) 06/14/17 06:10 pO2 15 mm/Hg (30-55) L 06/13/17 20:30 VBG pH 7.37 (7.32-7.43) 06/13/17 20:30 VBG pCO2 47 mmHg (40-60) 06/13/17 20:30 VBG HCO3 23.8 mmol/L 06/13/17 20:30 VBG Total CO2 28.6 mmol/L (22-28) H 06/13/17 20:30 VBG O2 Sat (Calc) 22.6 % (40-65) L 06/13/17 20:30 VBG Base Excess 1.3 mmol/L (0.0-2.0) 06/13/17 20:30 VBG Potassium 4.4 mmol/L (3.6-5.2) 06/13/17 20:30 Sodium 135.0 mmol/L (132-148) 06/13/17 20:30 Chloride 102.0 mmol/L (98-107) 06/13/17 20:30 Glucose 92 mg/dL (65-105) 06/13/17 20:30 Lactate 1.0 mmol/L (0.7-2.1) 06/13/17 20:30 FiO2 21.0 % 06/13/17 20:30 Sodium 144 mmol/l (132-148) 06/14/17 06:10 Potassium 4.1 MMOL/L (3.6-5.0) 06/14/17 06:10 Chloride 106 mmol/L (98-107) 06/14/17 06:10 Carbon Dioxide 25 mmol/L (22-30) 06/14/17 06:10 Anion Gap 17 (10-20) 06/14/17 06:10 BUN 4 mg/dl (7-17) L 06/14/17 06:10 Creatinine 0.5 mg/dL (0.7-1.2) L 06/14/17 06:10 Est GFR ( Amer) > 60 06/14/17 06:10 Est GFR (Non-Af Amer) > 60 06/14/17 06:10 Random Glucose 89 mg/dL (65-105) 06/14/17 06:10 Calcium 9.3 mg/dL (8.4-10.2) 06/14/17 06:10 Total Bilirubin 0.4 mg/dl (0.2-1.3) 06/14/17 06:10 AST 24 U/L (14-36) 06/14/17 06:10 ALT 29 U/L (9-52) 06/14/17 06:10 Alkaline Phosphatase 75 U/L (38-126) 06/14/17 06:10 Total Protein 7.4 G/DL (6.3-8.2) 06/14/17 06:10 Albumin 4.2 g/dL (3.5-5.0) 06/14/17 06:10 Globulin 3.2 gm/dL (2.2-3.9) 06/14/17 06:10 Albumin/Globulin Ratio 1.3 (1.0-2.1) 06/14/17 06:10 Venous Blood Potassium 4.4 mmol/L (3.6-5.2) 06/13/17 20:30 Urine Color Colorless (YELLOW) 06/14/17 23:00 Urine Clarity Clear (Clear) 06/14/17 23:00 Urine pH 7.0 (5.0-8.0) 06/14/17 23:00 Ur Specific [place] < 1.005 (1.003-1.030) 06/14/17 23:00 Urine Protein Negative mg/dL (NEGATIVE) 06/14/17 23:00 Urine Glucose (UA) Neg mg/dL (Normal) 06/14/17 23:00 Urine Ketones Negative mg/dL (NEGATIVE) 06/14/17 23:00 Urine Blood Negative (NEGATIVE) 06/14/17 23:00 Urine Nitrate Negative (NEGATIVE) 06/14/17 23:00 Urine Bilirubin Negative (NEGATIVE) 06/14/17 23:00 Urine Urobilinogen 0.2-1.0 mg/dL (0.2-1.0) 06/14/17 23:00 Ur Leukocyte Esterase Trace [place]/uL (Negative) 06/14/17 23:00 Urine RBC (Auto) 3 /hpf (0-3) 06/14/17 23:00 Urine Microscopic WBC 11 /hpf (0-5) H 06/14/17 23:00 Ur Squamous Epith Cells 2 /hpf (0-5) 06/14/17 23:00 Urine Bacteria Rare (<OCC) 06/14/17 23:00 Discharge Exam - Head Exam Head Exam: ATRAUMATIC, NORMAL INSPECTION, NORMOCEPHALIC - Eye Exam Eye Exam: EOMI, Normal appearance, PERRL Pupil Exam: NORMAL ACCOMODATION, PERRL - Respiratory Exam Respiratory Exam: Clear to PA & Lateral, NORMAL BREATHING PATTERN, UNREMARKABLE - Cardiovascular Exam Cardiovascular Exam: REGULAR RHYTHM, RRR, +S1, +S2 - GI/Abdominal Exam GI & Abdominal Exam: Normal Bowel Sounds, Soft, Unremarkable - Extremities Exam Extremities exam: full ROM, normal capillary refill, normal inspection, pedal pulses present - Back Exam Back exam: FULL ROM - Neurological Exam Neurological exam: Alert, CN II-XII Intact, Normal Gait, Oriented x3, Reflexes Normal - Psychiatric Exam Psychiatric exam: Normal Affect, Normal Mood - Skin Skin Exam: Dry, Intact, Normal Color, Warm Discharge Plan - Discharge Medications Prescriptions: cefTRIAXone 1 gm [Rocephin 1 gram IVPB] 1 gm IVPB DAILY #14 bag - Follow Up Plan Condition: FAIR Disposition: HOME/ ROUTINE Instructions: Ciprofloxacin (By injection), Urinary Tract Infection in Women ( DC), Dysuria (GEN) Additional Instructions: doing well, no complaints. no f/c, n/v/d. for dc today after makes arrangements. final dx-uti, sepsis f/u pmd/id Referrals: Mukul Ness MD [Staff Provider] - Herson Butler MD [Staff Provider] -
[2017-06-17] MEDS: Lactobacillus Acidophilus 500 MU Cap PO SCH ×2 (10:12→16:56)
--- NOTE | 2017-06-17 14:36 | CP.PCM.PCO ---
Assessment/Plan - Assessment/Plan Assessment (Free Text): Pt to continue IV antibiotics as outpatient in infusion center. Pt will get daily IV heplock for her abx infusion. Per Dr. Ness, pt to complete 5 more days of Rocephin IV and pt to f/u with her own ID doctor. Patient understands and will see her ID doctor next week. IV abx infusions arranged by CM. - Problems Patient Problems: Problem List (Active/Current) Problem Status Onset Code DVT prophylaxis Acute [id number] Septicemia Acute A41.9 UTI (urinary tract infection) Acute N39.0
[2017-06-17 15:50] VITALS: BP 161/83; PULSE 89; RESP 19; TEMP 98.4; O2SAT 96
--- NOTE | 2017-06-18 06:26 | PQF GENQUE ---
This form is a permanent part of the medical record 06/18/17 Samuel Malone APN, The attending physician is required to clarify conflicting documentation in the medical record. The following documentation is noted in the medical record: Diagnosis 1: Documented by ID: Admitted with E Coli UTI and GNR Bacteremia. Diagnosis 2: Documented by attending: Septicemia. Please clarify the appropriate diagnosis for this patient. Came to the ER on 06/11 and diagnosed with UTI and given Cipro. Called back because the Blood CS was + for E COLI and well as the Urine CS. Temp max was 99.9., HR max 91, BP 101/71, 129/77, 102/72. Admitted to medical surgical floor. Treated with IV Cipro which was changed to IV Rocephin. Clarification of your documentation is requested to better reflect the severity of illness and intensity of treatment of your patient. Indicators present [] Specify: [] [] Specify: [] [] Specify: [] [] Specify: [] Location in the medical record that reflects the above clinical findings: [] Treatment Provided: [] PHYSICIAN'S RESPONSE Based on your medical judgment of the clinical indicators outlined above please clarify the following: [] Practitioner response dx bacteremia secondary to uti [] If unable to determine, please check the box, sign and date. Present On Admission (POA) Indicator: [x] Present at the time of admission [] Not present at the time of admission [] Clinically Undetermined In responding to this query, please exercise your independent professional judgment. The fact that a question is asked does not imply that any particular answer is desired or expected. Thank you for your clarification on this documentation. If you have any questions please call:[phone] Thank you, Denise Patel RN [facility]
== END 2017-06-17 17:17 | disposition home or self-care (01) | DRG 690 ==
LOC: H.ER 18:58 → UNDOADMOB 21:52 → H.ERHOLD 21:52 → H.MEDSURG1 23:30 → H.ERHOLD 23:30 → H.MEDSURG1 06-14 15:06 → OBSVTOIN 06-15 20:17
PROVIDERS: ADMIT Family Medicine; ATTEND Family Medicine
DX: N39.0 Urinary tract infection, site not specified (principal); R78.81 Bacteremia; G35 Multiple sclerosis; B96.20 Unspecified Escherichia coli [E. coli] as the cause of diseases classified elsewhere; I34.1 Nonrheumatic mitral (valve) prolapse; Z99.3 Dependence on wheelchair; Z88.0 Allergy status to penicillin; Z87.440 Personal history of urinary (tract) infections

== ENCOUNTER 2017-09-23 17:52 | Emergency (ER) | payer MEDICARE, OTHER ==
[2017-09-23 17:52] VITALS: BMI 19.5
[2017-09-23 18:30] VITALS: BP 109/65; PULSE 85; RESP 16; TEMP 98.5; O2SAT 99
[2017-09-23] MEDS ORDERED: Liquid Adhesive TOP ONE (18:41)
--- NOTE | 2017-09-23 19:10 | ED PDOC ---
HPI: General Adult Time Seen by Provider: 09/23/17 18:35 Chief Complaint (Nursing): Abnormal Skin Integrity Chief Complaint (Provider): chin laceration History Per: Patient History/Exam Limitations: no limitations Onset/Duration Of Symptoms: Hrs (7 hours ago) Current Symptoms Are (Timing): Still Present Additional Complaint(s): 47 y/o patient with multiple sclerosis presents to the ED after sustaining a fall out of bed, onset of 7 hours ago. The patients aid was with her at the time of the fall and promptly helped her to her wheelchair. She sustained a laceration to the chin. She denies headache and facial aside from the laceration. Past Medical History Reviewed: Historical Data, Nursing Documentation, Vital Signs Vital Signs: Last Vital Signs Temp 98.5 F 09/23/17 18:28 Pulse 85 09/23/17 18:28 Resp 16 09/23/17 18:28 BP 109/65 09/23/17 18:28 Pulse Ox 99 09/23/17 19:24 - Medical History PMH: No Chronic Diseases, Mitral Valve Prolapse, Multiple Sclerosis Denies: Chronic Kidney Disease - Surgical History Surgical History: No Surg Hx - Family History Family History: States: Unknown Family Hx - Social History Current smoker - smoking cessation education provided: No Ex-Smoker (has not smoked in the last 12 months): No Alcohol: None Drugs: Denies - Home Medications Home Medications: Ambulatory Orders Medication Instructions Recorded Baclofen [Lioresal] 2 tab PO QID 06/13/17 Levothyroxine [Synthroid] 88 mcg PO DAILY 06/13/17 cefTRIAXone 1 gm [Rocephin 1 gram 1 gm IVPB DAILY #5 bag 06/17/17 IVPB] - Allergies Allergies/Adverse Reactions: Allergies Allergy/AdvReac Type Severity Reaction Status Date / Time Penicillins Allergy RASH Verified 10/07/15 19:41 Review of Systems ROS Statement: Except As Marked, All Systems Reviewed And Found Negative Constitutional: Negative for: Fever, Other (facial pain aside for the laceration site) Neurological: Negative for: Headache Physical Exam - Reviewed Nursing Documentation Reviewed: Yes Vital Signs Reviewed: Yes - Physical Exam ENT: Positive for: Other (1cm linear very superficial submental laceration; full active ROM of the jaw ) - ECG O2 Sat by Pulse Oximetry: 99 (RA) Pulse Ox Interpretation: Normal - Progress ED Course And Treament: Pt. informed that sutures would better approximate wound but refused and requests tissue glue instead. Medical Decision Making Medical Decision Making: Time: --18:41 Impression: --Chin Laceration Plan: --Mastisol Adhesive 0.66ml TOP Reassess -- Scribe Attestation: Documented by Kishore Allison acting as a scribe for Yakov Cedillo Procedures - Time-Out Type of Procedure: laceration repair Site of Procedure: chin laceration Correct Patient (with visual ID + MR# on ID Band): Yes Correct Procedure: Yes Correct Site Marked: Yes PA/Tech: Nguyen - Laceration/Wound Repair laceration repair Wound Length (cm): 1 Wound's Depth, Shape: superficial, linear Irrigated w/ Saline (ccs): 200 Wound Repaired With: Skin adhesive Wound Complexity: Simple Disposition - Clinical Impression Clinical Impression: Chin laceration - Patient ED Disposition Is Patient to be Admitted: No - Disposition Disposition: Routine/Home Disposition Time: 19:00 Condition: STABLE Instructions: Skin Adhesive Care (ED) Forms: [employer] (Uzbek) Print Language: WALLISIAN
== END 2017-09-23 19:30 | disposition home or self-care (01) ==
LOC: H.ER 17:52
DX: S01.81XA Laceration without foreign body of other part of head, initial encounter (principal); W06.XXXA Fall from bed, initial encounter; Y92.89 Other specified places as the place of occurrence of the external cause; G35 Multiple sclerosis; Z88.0 Allergy status to penicillin

== ENCOUNTER 2018-08-29 16:32 | Emergency (ER) | payer MEDICARE, OTHER ==
[2018-08-29 16:32] VITALS: BMI 19.5
[2018-08-29 16:49] VITALS: BP 105/78; PULSE 90; RESP 18; TEMP 98.3; O2SAT 100
[2018-08-29] MEDS ORDERED: Bacitracin OINT 15GM TOP STA (16:58)
--- NOTE | 2018-08-29 16:59 | ED PDOC ---
HPI: Head Injury Time Seen by Provider: 08/29/18 16:49 Chief Complaint (Nursing): Abnormal Skin Integrity Chief Complaint (Provider): Abnormal Skin Integrity History Per: Patient History/Exam Limitations: no limitations Injury Occurred (Timing): Hours Ago: (7x hours prior to arrival) Patient States: Struck With Object Severity: Moderate Loss Of Consciousness: No Additional Complaint(s): 47 year old female presents to the ED for an evaluation of a head injury that occurred 5x hours prior to arrival. Patient states that she was in a wheelchair this morning, when she bent down to pick something up, and struck her right upper eyelid with the corner of a sink. Patient states that she experienced no loss of consciousness. Patient reports that she was able to get to her scheduled MRI appointment today, but is uncertain of the results. Patent denies having any headaches. PMD: None provided. Past Medical History Reviewed: Historical Data, Nursing Documentation, Vital Signs Vital Signs: Last Vital Signs Temp 98.3 F 08/29/18 16:47 Pulse 90 08/29/18 16:47 Resp 18 08/29/18 16:47 BP 105/78 08/29/18 16:47 Pulse Ox 100 08/29/18 16:47 - Medical History PMH: Mitral Valve Prolapse, Multiple Sclerosis Denies: Chronic Kidney Disease - Surgical History Other surgeries: thyroidectomy - Family History Family History: States: No Known Family Hx - Social History Alcohol: None Drugs: Denies - Home Medications Home Medications: Ambulatory Orders Medication Instructions Recorded Baclofen [Lioresal] 2 tab PO QID 06/13/17 Levothyroxine [Synthroid] 88 mcg PO DAILY 06/13/17 cefTRIAXone 1 gm [Rocephin 1 gram 1 gm IVPB DAILY #5 bag 06/17/17 IVPB] - Allergies Allergies/Adverse Reactions: Allergies Allergy/AdvReac Type Severity Reaction Status Date / Time Penicillins Allergy RASH Verified 08/29/18 16:47 Review of Systems ROS Statement: Except As Marked, All Systems Reviewed And Found Negative Skin: Positive for: Other (wound to right upper eyelid ) Neurological: Negative for: Headache, Other (loss of consciousness) Physical Exam - Reviewed Nursing Documentation Reviewed: Yes Vital Signs Reviewed: Yes - Physical Exam Appears: Positive for: Well, Non-toxic, No Acute Distress Head Exam: Positive for: NORMOCEPHALIC. Negative for: ATRAUMATIC (1 cm very superficial laceration to the right upper eyelid. (-) surrounding erythema, (-) active bleeding. Wound is non-gaping.) Eye Exam: Positive for: EOMI (includin pward gaze.) Neurologic/Psych: Positive for: Alert, Oriented (3x) - ECG O2 Sat by Pulse Oximetry: 100 (RA) Pulse Ox Interpretation: Normal Medical Decision Making Medical Decision Makin:49 Initial impression: 47 year old female with laceration to her right upper eyelid. Initial plan - bacitracin 1 ea top Scribe Attestation: Documented by Gerda Oviedo, acting as a scribe for Yakov Armas Provider Scribe Attestation: All medical record entries made by the Scribe were at my direction and personally dictated by me. I have reviewed the chart and agree that the record accurately reflects my personal performance of the history, physical exam, medical decision making, and the department course for this patient. I have also personally directed, reviewed, and agree with the discharge instructions and disposition. Disposition - Clinical Impression Clinical Impression: Head injury, Eyelid laceration - Patient ED Disposition Is Patient to be Admitted: No - Disposition Referrals: [facility] [Outside] Disposition: Routine/Home Disposition Time: 16:57 Condition: STABLE Additional Instructions: BASIM BENOIT, thank you for letting us take care of you today. Your provider was George Mendez MD and you were treated for FACE LACERATION. The emergency medical care you received today was directed at your acute symptoms. If you were prescribed any medication, please fill it and take as directed. It may take several days for your symptoms to resolve. Return to the Emergency Department if your symptoms worsen, do not improve, or if you have any other problems. Please contact your doctor or call one of the physicians/clinics you have been referred to that are listed on the Patient Visit Information form that is included in your discharge packet. Bring any paperwork you were given at discharge with you along with any medications you are taking to your follow up visit. Our treatment cannot replace ongoing medical care by a primary care provider outside of the emergency department. Thank you for allowing the [facility] team to be part of your care today. If you had an X-Ray or CT scan: A Radiologist will review the ED reading if any change in treatment is needed we will contact you. If you had a blood, urine, or wound culture: It will take several days for the results, if any change in treatment is needed we will contact you. If you had an STI test: It will take 48 hours for the results. Please call after 1 week if you have not heard back. Instructions: Wound Care (DC), Closed Head Injury (DC) Forms: [employer] (Rwandan) Print Language: SCOTTISH
[2018-08-29] MEDS ORDERED: Bacitracin 500 Units/gm Oint Foilpak UD TOP STA (17:09)
== END 2018-08-29 17:14 | disposition home or self-care (01) ==
LOC: H.ER 16:32
DX: S01.111A Laceration without foreign body of right eyelid and periocular area, initial encounter (principal); S09.90XA Unspecified injury of head, initial encounter; W22.8XXA Striking against or struck by other objects, initial encounter; Y92.89 Other specified places as the place of occurrence of the external cause